=== PATIENT | male | born 1970 | race American Indian/Alaskan Native ===

== ENCOUNTER 2016-10-21 15:33 | Emergency (ER) | payer SELFPAY ==
[2016-10-21] MEDS ORDERED: MOTRIN PO ONE (19:42)
--- NOTE | 2016-10-21 19:42 | Emergency Department Report ---
Upper Extremity - HPI Chief Complaint: Extremity Problem,Nontraumatic Stated Complaint: JOINTS SWOLLEN/LT HAND SWOLLEN Time Seen by Provider: 10/21/16 19:21 Upper Extremity: Left Shoulder, Left Hand, Left Index Finger, Left Middle Finger Occurred When: 2 Days Severity: moderate Symptoms: Yes Pain with Movement, Yes Limited Range of Movement, No Deformity, No Numbness, No Weakness, No Swelling, No Bruising/Ecchymosis Other History: 46M past medical history none presents with complaint of left index finger pain and mild hand swelling around the second MCP joint. Also complaining of left shoulder discomfort for 2 days. Patient denies any paresthesias denies any direct trauma. States that he was mowing his lawn and after mowing his lawn a few hours later noticed slight curvature of his left index finger at the distal finger. Patient denies any fevers or chills denies any changes in skin coloration. Patient is able to flex and extend his left wrist but states that trying to straighten out his left index finger is somewhat uncomfortable. ED Review of Systems ROS: Stated complaint: JOINTS SWOLLEN/LT HAND SWOLLEN Other details as noted in HPI Constitutional: denies: chills, fever Eyes: denies: eye pain, eye discharge, vision change ENT: denies: ear pain, throat pain Respiratory: denies: cough, shortness of breath, wheezing Cardiovascular: denies: chest pain, palpitations Endocrine: no symptoms reported Gastrointestinal: denies: abdominal pain, nausea, diarrhea Genitourinary: denies: urgency, dysuria Musculoskeletal: as per HPI. denies: back pain, joint swelling, arthralgia Skin: denies: rash, lesions Neurological: denies: headache, weakness, paresthesias Psychiatric: denies: anxiety, depression Hematological/Lymphatic: denies: easy bleeding, easy bruising ED Past Medical Hx - Surgical History Past Surgical History?: No - Social History Smoking Status: Current Every Day Smoker Substance Use Type: None - Medications Home Medications: Home Medications Medication Instructions Recorded Confirmed Last Taken Type Naproxen [Naprosyn TAB] 500 mg PO BID PRN #25 tablet 10/21/16 Unknown Rx Upper Extremity Exam - Exam General: Vital signs noted. No distress. Alert and acting appropriately. Head and Torso: No HEENT Abnormality, No Neck Tenderness, No Chest/Lungs Abnormality, No Abdominal Tenderness, No Back Tenderness Shoulder Exam: Yes Normal Range of Motion in Shoulder, No Shoulder Tenderness ( shoulder flexion and extension internal and external rotation abduction and abduction fully intact), No Clavicle Tenderness, No Shoulder Deformity, No AC Joint Tenderness Arm Exam: No Arm/Humerus Tenderness, No Arm Deformity Elbow: No Elbow Tenderness, No Normal Range of Motion in Elbow, No Elbow Deformity Forearm: No Forearm Tenderness, No Forearm Deformity, No Pain with Pronation, No Pain with Supination Wrist: Yes Normal ROM in Wrist, No Wrist Tenderness, No Wrist Deformity, No Snuffbox Tenderness, No Pain with Axial Thumb Compression Hand: Yes Digit Tenderness (pain with active extension of left index finger, capillary refill less than one second all fingers distal sensation intact to light touch), Yes Normal ROM in Digit(s), No Hand Tenderness, No Hand Deformity , No Digit(s) Deformity, No Tendon Dysfunction CMS Exam: Yes Normal Capillary Refill (capillary refill less than 1 second all fingers), No Broken Skin, No Normal Distal Pulses (distal radial and brachial pulses intact), No Normal Distal Sensation Hand L/R Back: 1 - Resting flexion and distal interphalangeal joint and proximal interphalangeal joint suggestive of trigger finger ED Course Vital Signs 10/21/16 16:27 Temperature 98.6 F Pulse Rate 77 Respiratory 16 Rate Blood Pressure 118/75 O2 Sat by Pulse 98 Oximetry ED Medical Decision Making - Medical Decision Making A/P: Trigger finger left index finger 1-x-ray shows deformity and distal interphalangeal and proximal interphalangeal joint left index finger, clinically patient has trigger finger 2-x-ray shoulder unremarkable 3-naproxen when necessary, RICE therapy, finger splint, follow-up with orthopedics. Finger and hand neurovascularly intact there is no snuffbox tenderness, wrist flexion and extension fully intact against resistance distal pulses are intact and distal sensation is intact. No signs of cellulitis on exam Critical care attestation.: If time is entered above; I have spent that time in minutes in the direct care of this critically ill patient, excluding procedure time. ED Disposition Clinical Impression: Trigger finger of left hand Qualifiers: Trigger finger location: index finger Qualified Code(s): M65.322 - Trigger finger, left index finger Left shoulder strain Qualifiers: Encounter type: initial encounter Qualified Code(s): S46.912A - Strain of unspecified muscle, fascia and tendon at shoulder and upper arm level, left arm , initial encounter Disposition: TO HOME OR SELFCARE Is pt being admited?: No Does the pt Need Aspirin: No Condition: Stable Instructions: Trigger Finger (ED), Shoulder Sprain (ED), RICE Therapy (ED) Prescriptions: Naproxen [Naprosyn TAB] 500 mg PO BID PRN #25 tablet PRN Reason: Pain Referrals: JAN ASHLEY MD [Staff Physician] - 3-5 Days Forms: Accompanied Note Time of Disposition: 21:28
--- NOTE | 2016-10-21 20:55 | XRay Report ---
FINAL REPORT EXAM: XR SHOULDER 2 LT HISTORY: left shoulder pain TECHNIQUE: AP, Y, and oblique views of the left shoulder PRIORS: None. FINDINGS: There is no evidence of acute fracture or dislocation. Joint spaces are maintained and bony mineralization is normal. Soft tissues are unremarkable. IMPRESSION: No acute abnormality identified in the left shoulder.
--- NOTE | 2016-10-21 20:57 | XRay Report ---
FINAL REPORT EXAM: XR HAND 3 LT HISTORY: left hand/finger pain, clinical trigger finger . Mowed lawn TECHNIQUE: AP, lateral, and oblique views of the left hand PRIORS: None. FINDINGS: There is a flexion deformity involving the 2nd proximal interphalangeal joint. There also a flexion deformity which is more mild involving the 3rd proximal interphalangeal joint. There is no evidence for acute fracture. No soft tissue swelling or radiopaque foreign bodies are seen. Bony mineralization is normal. Narrowing of the radiocarpal joint is present. IMPRESSION: Flexion deformities involving the 2nd and 3rd proximal interphalangeal joints. The 2nd digit deformity is worse than the 3rd digit. No evidence for fracture.
[2016-10-21 23:20] VITALS: BP 121/75
== END 2016-10-21 21:40 | disposition home or self-care (01) ==
LOC: ED 15:33
DX: S46.912A Strain of unspecified muscle, fascia and tendon at shoulder and upper arm level, left arm, initial encounter (principal); M65.322 Trigger finger, left index finger; X58.XXXA Exposure to other specified factors, initial encounter; Y93.9 Activity, unspecified; Y92.89 Other specified places as the place of occurrence of the external cause; Y99.9 Unspecified external cause status
CPT/HCPCS: 99283